=== PATIENT | female | born 1990 | race Caucasian/White ===

== ENCOUNTER 2017-03-20 11:58 | Emergency (ER) | payer MEDICAID | END 2017-03-20 12:10 | disposition left against medical advice (07) | LOC: ER 11:58 | DX: Z53.21 Procedure and treatment not carried out due to patient leaving prior to being seen by health care provider (principal) ==

== ENCOUNTER 2017-03-25 12:17 | Emergency (ER) | payer MEDICAID ==
[2017-03-25 12:32] VITALS: BP 128/95
--- NOTE | 2017-03-25 13:06 | ER Document Report ---
ED Skin Rash/Insect Bite/Abscs - General Chief Complaint: Abscess Stated Complaint: POSSIBLE ABCESS Time Seen by Provider: 03/25/17 12:56 Mode of Arrival: Ambulatory Information source: Patient TRAVEL OUTSIDE OF THE [place] IN LAST 30 DAYS: No - HPI Patient complains to provider of: Tender/swollen area Onset: Other - 2 months Onset/Duration: Persistent Quality of pain: Achy Severity: Mild Pain Level: 1 Notes: Patient is a 26-year-old female presenting to the emergency room today complaining of painful raised lump in her right groin area that has been present for 2 months, she does shave the area, reports she tried squeeze the area to see if anything would come out nothing has, it has persisted for the past 2 months without any significant change except she does report is gotten slightly larger, no fevers, no injury, no nausea vomiting or diarrhea, no dysuria patient denies being - Related Data Allergies/Adverse Reactions: latex [Latex] Allergy (Verified 03/25/17 12:25) Past Medical History - General Information source: Patient - Social History Smoking Status: Current Every Day Smoker Family History: Reviewed & Not Pertinent, CVA, DM, Hypertension, Malignancy - Past Medical History Cardiac Medical History: Pulmonary Medical History: Neurological Medical History: Reports: Hx Migraine Endocrine Medical History: Renal/ Medical History: Reports: Hx Pelvic Inflammatory Disease. Denies: Hx Peritoneal Dialysis GI Medical History: Musculoskeltal Medical History: Psychiatric Medical History: Reports: Hx Depression - Self diagnosed Past Surgical History: Reports: Hx Dilation and Curettage, Hx Gynecologic Surgery - D&C 01/03/2014, Hx Oral Surgery - Immunizations Immunizations up to date: Yes Hx Diphtheria, Pertussis, Tetanus Vaccination: Yes Review of Systems - Review of Systems Constitutional: No symptoms reported EENT: No symptoms reported Cardiovascular: No symptoms reported Respiratory: No symptoms reported Gastrointestinal: No symptoms reported Genitourinary: No symptoms reported Female Genitourinary: No symptoms reported Musculoskeletal: No symptoms reported Skin: See HPI Hematologic/Lymphatic: No symptoms reported Neurological/Psychological: No symptoms reported -: Yes All other systems reviewed and negative Physical Exam - Vital signs Vitals: Temp Pulse Resp BP Pulse Ox 99.2 F 90 16 128/95 H 98 03/25/17 12:25 03/25/17 12:25 03/25/17 12:25 03/25/17 12:25 03/25/17 12:25 - Notes Notes: - General General appearance: Appears well, Alert In distress: None - HEENT Head: Normocephalic, Atraumatic Eyes: Normal Conjunctiva: Normal Extraocular movements intact: Yes Eyelashes: Normal Pupils: PERRL - Respiratory Respiratory status: No respiratory distress - Cardiovascular Rhythm: Regular - Abdominal Inspection: Normal - Back Back: Normal - Extremities General upper extremity: Normal inspection General lower extremity: Normal inspection - Neurological Neuro grossly intact: Yes Orientation: AAOx4 James Coma Scale Eye Opening: Spontaneous James Coma Scale Verbal: Oriented James Coma Scale Motor: Obeys Commands Encinal Coma Scale Total: 15 - Psychological Associated symptoms: Normal affect, Normal mood - Skin Skin Temperature: Warm Skin Moisture: Dry Skin Color: Normal - Skin Skin irregularity: other - In the right groin area or 2 separate areas of mild induration with mild erythema, slightly tender to palpate, no active drainage, no fluctuance Course - Re-evaluation Re-evalutation: 03/25/17 15:16 Physical exam findings consistent with folliculitis in the right groin area, no fluctuance, and no need for incision and drainage at this point, patient was advised to apply warm compresses, was started on antibiotics and advised to return if symptoms worsen, patient acknowledges understanding and agreement with this plan - Vital Signs Vital signs: Temp Pulse Resp BP Pulse Ox 99.2 F 90 18 128/95 H 98 03/25/17 12:25 03/25/17 12:25 03/25/17 13:12 03/25/17 12:25 03/25/17 12:25 Discharge - Discharge Clinical Impression: Folliculitis Condition: Stable Disposition: HOME, SELF-CARE Instructions: Folliculitis ([facility]), Trimethoprim-Sulfa ([facility]) Additional Instructions: Follow up with your primary care provider in one to 2 days. Return to the emergency room immediately if symptoms worsen or any additional concerns. Prescriptions: Sulfamethoxazole/Trimethoprim [Bactrim Ds Tablet] 1 each PO BID #20 tablet
== END 2017-03-25 13:15 | disposition home or self-care (01) ==
LOC: ER 12:17
DX: L73.9 Follicular disorder, unspecified (principal); Z91.040 Latex allergy status
CPT/HCPCS: 99282

== ENCOUNTER 2018-07-11 18:17 | Emergency (ER) | payer SELFPAY ==
[2018-07-11 18:27] VITALS: BP 143/97
--- NOTE | 2018-07-11 18:39 | ER Document Report ---
HPI - HPI Time Seen by Provider: 07/11/18 18:36 Pain Level: 2 Notes: Patient is a 28-year-old female who presents emergency department for staple removal status post placement 10 days ago in [place] for a laceration to her left forearm. Patient states that she has kept the wound clean and has not noticed any redness or purulence. No other concerns or complaints. Denies any fever, URI, sore throat, chest pain, palpitations, syncope, cough, shortness of breath, wheeze, dyspnea, abdominal pain, nausea/vomiting/diarrhea, urinary retention, dysuria, hematuria, numbness/tingling, muscle paralysis/weakness, or rash. - ROS Systems Reviewed and Negative: Yes All other systems reviewed and negative - REPRODUCTIVE Reproductive: DENIES: : Past Medical History - Social History Smoking Status: Unknown if Ever Smoked Family History: Reviewed & Not Pertinent, CVA, DM, Hypertension, Malignancy - Past Medical History Cardiac Medical History: Pulmonary Medical History: Neurological Medical History: Reports: Hx Migraine Endocrine Medical History: Renal/ Medical History: Reports: Hx Pelvic Inflammatory Disease. Denies: Hx Peritoneal Dialysis GI Medical History: Musculoskeletal Medical History: Psychiatric Medical History: Reports: Hx Depression - Self diagnosed Past Surgical History: Reports: Hx Section, Hx Dilation and Curettage, Hx Gynecologic Surgery - D&C 01/03/2014, Hx Oral Surgery - Immunizations Immunizations up to date: Yes Hx Diphtheria, Pertussis, Tetanus Vaccination: Yes Vertical Provider Document - CONSTITUTIONAL Agree With Documented VS: Yes Notes: PHYSICAL EXAMINATION: GENERAL: Well-appearing, well-nourished and in no acute distress. LUNGS: Breath sounds clear to auscultation bilaterally and equal. No wheezes rales or rhonchi. HEART: Regular rate and rhythm without murmurs, rubs, gallops. Musculoskeletal: Left arm: FROM to passive/active. Strength 5+/5. N/V intact distal. Extremities: No cyanosis, clubbing, or edema b/l. Peripheral pulses 2+. Capillary refill less than 3 seconds. NEUROLOGICAL: Cranial nerves grossly intact. Normal speech, normal gait. Normal sensory, motor exams PSYCH: Normal mood, normal affect. SKIN: Left forearm: [address] and the wound appears well-healed without wound dehiscence, erythema, warmth, purulence, streaks, or fluctuance. Nontender to palpation. - INFECTION CONTROL TRAVEL OUTSIDE OF THE [place] IN LAST 30 DAYS: No Course - Re-evaluation Re-evalutation: 07/11/18 18:39 Patient is an afebrile, well-hydrated, 28-year-old female who presents emergency department for staple removal. Vitals are acceptable. PE is otherwise unremarkable. There is no evidence of wound dehiscence or infection at this time. The wound appears well-healed and ziyad were removed successfully without any complications. Wound instructions reviewed. Recheck with your PCM in 3-5 days. Return to the ED with any other worsening/concerning symptoms as reviewed. Patient is in agreement. - Vital Signs Vital signs: Temp Pulse Resp BP Pulse Ox 97.9 F 70 14 143/97 H 96 07/11/18 18:26 07/11/18 18:26 07/11/18 18:26 07/11/18 18:26 07/11/18 18:26 Discharge - Discharge Clinical Impression: Removal of ziyad Condition: Stable Disposition: HOME, SELF-CARE Instructions: Staple Removal ([facility]) Additional Instructions: Keep the skin clean Wash with soap and water Tylenol/ibuprofen if needed Take medication as directed Monitor for any worsening symptoms Recheck with your PCM in 3-5 days Return to the ED with any worsening symptoms and/or development of fever, headache, chest pain, palpitations, syncope, shortness of breath, trouble breathing, abdominal pain, n/v/d, abscess, purulent discharge, red streaks, worsening swelling, or other worsening symptoms that are concerning to you. Forms: Elevated Blood Pressure Referrals: [facility] [Provider Group] - Follow up as needed
== END 2018-07-11 19:00 | disposition home or self-care (01) ==
LOC: ER 18:17
DX: S51.812D Laceration without foreign body of left forearm, subsequent encounter (principal); W45.8XXD Other foreign body or object entering through skin, subsequent encounter
CPT/HCPCS: 99281

== ENCOUNTER 2018-12-14 14:10 | Emergency (ER) | payer SELFPAY ==
--- NOTE | 2018-12-14 14:42 | ER Document Report ---
ED Medical Screen (RME) - General Chief Complaint: Diarrhea Stated Complaint: WEAKNESS Time Seen by Provider: 12/14/18 14:37 Mode of Arrival: Ambulatory Information source: Patient Notes: Patient presents emergency department with reports of diarrhea multiple times a day for over a month. Patient reports she started to feel weak. She reports whenever she eats goes right through her. Denies recent trip. Denies recent antibiotics. Reports 2 medications new but reports the diarrhea was happening before she started the new medications. She reports her mother gave her some type of antidiarrhea medication yesterday. Otherwise she has not taken anything. She denies fever vomiting. Patient complains abdominal cramps. I have greeted and performed a rapid initial assessment of this patient. A comprehensive ED assessment and evaluation of the patient, analysis of test results and completion of the medical decision making process will be conducted by additional ED providers. Dictation of this chart was performed using voice recognition software; therefore, there may be some unintended grammatical errors. TRAVEL OUTSIDE OF THE [place] IN LAST 30 DAYS: No - Related Data Allergies/Adverse Reactions: latex [Latex] Allergy (Verified 12/14/18 14:11) Past Medical History - Social History Chew tobacco use (# tins/day): No Frequency of alcohol use: Social Drug Abuse: Marijuana Family history: Reviewed & Not Pertinent - Past Medical History Cardiac Medical History: Pulmonary Medical History: Neurological Medical History: Reports: Hx Migraine Endocrine Medical History: Renal/ Medical History: Reports: Hx Pelvic Inflammatory Disease. Denies: Hx Peritoneal Dialysis GI Medical History: Musculoskeltal Medical History: Psychiatric Medical History: Reports: Hx Depression - Self diagnosed Past Surgical History: Reports: Hx Section, Hx Dilation and Curettage, Hx Gynecologic Surgery - D&C 01/03/2014, Hx Oral Surgery - Immunizations Immunizations up to date: Yes Hx Diphtheria, Pertussis, Tetanus Vaccination: Yes Physical Exam - Vital signs Vitals: Temp Pulse Resp BP Pulse Ox 98.2 F 73 18 142/87 H 100 12/14/18 14:21 12/14/18 14:21 12/14/18 14:21 12/14/18 14:21 12/14/18 14:21 Course - Vital Signs Vital signs: Temp Pulse Resp BP Pulse Ox 98.2 F 73 18 142/87 H 100 12/14/18 14:21 12/14/18 14:21 12/14/18 14:21 12/14/18 14:21 12/14/18 14:21
[2018-12-14 15:05] LABS: ABSOLUTE EOSINOPHILS # (AUTO) 0.1 10^3/uL (0.0-0.6); ABSOLUTE LYMPHOCYTES (AUTO) 1.2 10^3/uL (0.5-4.7); ABSOLUTE MONOCYTES (AUTO) 0.7 10^3/uL (0.1-1.4); ABSOLUTE NEUT (AUTO) 5.3 10^3/uL (1.7-8.2); BASOPHILS % (AUTO) 0.5 % (0-2); EOSINOPHILS % (AUTO) 1.1 % (0-6); HEMATOCRIT 41.7 % (36.0-47.0); LYMPHOCYTES % (AUTO) 16.1 % (13-45); MEAN CORPUSCULAR HGB CONC 33.5 g/dL (32.0-36.0); MEAN CORPUSCULAR VOLUME 93 fl (80-97); MONOCYTES % (AUTO) 9.6 % (3-13); PLATELET COUNT 185 10^3/uL (150-450); RED BLOOD COUNT 4.51 10^6/uL (3.72-5.28); RED CELL DISTRIBUTION WIDTH 13.5 % (11.5-14.0); SEGMENTED NEUTROPHILS % (AUTO) 72.7 % (42-78); TOTAL CELLS COUNTED % (AUTO) 100 %; WHITE BLOOD COUNT 7.3 10^3/uL (4.0-10.5)
[2018-12-14 15:22] LABS: ALANINE AMINOTRANSFERASE 19 U/L (9-52); ALBUMIN 4.4 g/dL (3.5-5.0); ALKALINE PHOSPHATASE 68 U/L (38-126); ANION GAP 8 (5-19); APPEARANCE,URINE CLEAR; ASPARTATE AMINO TRANSFERASE 22 U/L (14-36); BILIRUBIN,DIRECT 0.1 mg/dL (0.0-0.4); BILIRUBIN,TOTAL 0.3 mg/dL (0.2-1.3); BILIRUBIN,URINE NEGATIVE (NEGATIVE); BLOOD UREA NITROGEN 4 mg/dL (7-20); CALCIUM 9.6 mg/dL (8.4-10.2); CARBON DIOXIDE 29 mmol/L (22-30); CHLORIDE 103 mmol/L (98-107); COLOR,URINE STRAW; GLUCOSE 90 mg/dL (75-110); GLUCOSE, URINE NEGATIVE (NEGATIVE); KETONES,URINE NEGATIVE (NEGATIVE); POTASSIUM 4.1 mmol/L (3.6-5.0); SODIUM 139.6 mmol/L (137-145); TOTAL PROTEIN 7.5 g/dL (6.3-8.2); URINE SPECIFIC GRAVITY 1.008
[2018-12-14 15:23] LABS: LEUKOCYTE ESTERASE,URINE NEGATIVE (NEGATIVE); NITRITE,URINE NEGATIVE (NEGATIVE); PROTEIN,URINE NEGATIVE (NEGATIVE); UROBILINOGEN,URINE NEGATIVE mg/dL (<2.0)
--- NOTE | 2018-12-14 15:57 | ER Document Report ---
ED General - General Chief Complaint: Diarrhea Stated Complaint: WEAKNESS Time Seen by Provider: 12/14/18 14:37 Primary Care Provider: [facility] [Provider Group] - Follow up as needed [facility] [Provider Group] - Follow up as needed Mode of Arrival: Ambulatory Notes: Patient is a 28-year-old female who presents emergency department with a chief complaint of diarrhea weakness. Patient states that she has had diarrhea for the past month. Started yesterday she felt like she was nauseous and not feeling well, therefore prompted her to him to the emergency department. She also has complaints of numbness in her arms and hands. Patient states that she does not have any actual pain, but feels "gassy.". Patient states that her mother has been diagnosed with a gluten allergy. Patient states that she eats whenever she wants and has not tried eliminating gluten or any other substance from her diet. TRAVEL OUTSIDE OF THE [place] IN LAST 30 DAYS: No - Related Data Allergies/Adverse Reactions: latex [Latex] Allergy (Verified 12/14/18 14:11) Past Medical History - General Information source: Patient - Social History Smoking Status: Current Every Day Smoker Chew tobacco use (# tins/day): No Frequency of alcohol use: Social Drug Abuse: Marijuana Family History: Reviewed & Not Pertinent, CVA, DM, Hypertension, Malignancy Patient has suicidal ideation: No Patient has homicidal ideation: No - Past Medical History Cardiac Medical History: Pulmonary Medical History: Neurological Medical History: Reports: Hx Migraine Endocrine Medical History: Renal/ Medical History: Reports: Hx Pelvic Inflammatory Disease. Denies: Hx Peritoneal Dialysis GI Medical History: Musculoskeletal Medical History: Psychiatric Medical History: Reports: Hx Depression - Self diagnosed Past Surgical History: Reports: Hx Section, Hx Dilation and Curettage, Hx Gynecologic Surgery - D&C 01/03/2014, Hx Oral Surgery - Immunizations Immunizations up to date: Yes Hx Diphtheria, Pertussis, Tetanus Vaccination: Yes Review of Systems - Review of Systems Notes: REVIEW OF SYSTEMS: CONSTITUTIONAL : Denies recent illness. Denies recent unintentional weight loss. Denies fever, chills, or sweats. EENT: Denies eye, ear, throat, or mouth pain, discharge, or symptoms. Denies nasal or sinus congestion. CARDIOVASCULAR: Denies chest pain. RESPIRATORY: Denies shortness of breath, cough, congestion, difficulty breathing, or wheezing. GASTROINTESTINAL: See HPI GENITOURINARY: Denies difficulty urinating, burning, blood in urine, urgency or frequency. MUSCULOSKELETAL: Denies neck and back pain. Denies joint pain or swelling. SKIN: Denies rash, itchiness, or lesions HEMATOLOGIC : Denies easy bruising or bleeding. LYMPHATIC: Denies swollen, painful, enlarged glands. NEUROLOGICAL: Denies no numbness or tingling denies weakness. Denies headache. Denies altered mental status. Denies alteration in speech. PSYCHIATRIC: Denies stress, anxiety, alteration in sleep patterns, or depressi on. All other systems reviewed and negative. Physical Exam - Vital signs Vitals: Temp Pulse Resp BP Pulse Ox 98.2 F 73 18 142/87 H 100 12/14/18 14:21 12/14/18 14:21 12/14/18 14:21 12/14/18 14:21 12/14/18 14:21 - Notes Notes: PHYSICAL EXAMINATION: GENERAL: Appears well, healthy, well-nourished, no acute distress. HEAD: Normocephalic, atraumatic. EYES: PERRL, conjunctiva normal, all extraocular movements intact, sclera nonicteric ENT: Moist mucous membranes. NECK: Supple, no noticeable swelling, redness, rash. Normal range of motion. LUNGS: Equal breath sounds bilaterally and clear to auscultation. No wheezes rales or rhonchi. CARDIOVASCULAR: S1-S2, regular rate, regular rhythm. Radial pulses 2+, normal. ABDOMEN: Normoactive bowel sounds. Soft, nontender, no guarding, no rebound tenderness, and no masses palpated. EXTREMITIES: Normal strength and range of motion, no pitting or edema. No cyanosis. NEUROLOGICAL: Moves all extremities upon command. Strength 5/5 in all extremities. PSYCH: Normal mood, normal affect. SKIN: Warm, dry. No rash, lesions, ulcerations noted. Normal skin turgor. Course - Re-evaluation Re-evalutation: 12/14/18 17:13 Patient is not able to have bowel movement at this time. I will send her home with a lab slip so she can turn her stool and and have someone follow-up with her stool results. I have educated the patient on trying to eliminate gluten from her diet. She will follow-up with the [facility] or [facility] in regards to this visit. I am very low suspicion for appendicitis, bowel obstruction, colitis, diverticulitis, diverticulosis, bowel perforation, or any life-threatening etiology at this time. Follow-up precautions were given. Verbal discharge instructions were given to the patient. They verbalized understanding. They are stable for discharge. - Vital Signs Vital signs: Temp Pulse Resp BP Pulse Ox 98.4 F 73 16 129/85 H 99 12/14/18 17:12 12/14/18 17:12 12/14/18 17:12 12/14/18 17:12 12/14/18 17:12 - Laboratory Result Diagrams: 12/14/18 14:50 12/14/18 14:50 Laboratory results interpreted by me: 12/14/18 14:50 BUN 4 L Discharge - Discharge Clinical Impression: Weakness, Nausea Diarrhea Qualifiers: Diarrhea type: unspecified type Qualified Code(s): R19.7 - Diarrhea, unspecified Condition: Stable Disposition: HOME, SELF-CARE Additional Instructions: You were seen today in the emergency department for diarrhea, nausea, and weakness. Your nausea and weakness/numbness is most likely due to you having constant diarrhea. He received a dose of loperamide (Imodium) here in the emergency department to help with your diarrhea. Please make sure you stay well-hydrated. Your labs here in the emergency department were normal. Please follow-up with 1 of the clinics below in regards to this visit. If you suspect he may have gluten allergies or intolerance, please start eliminating these items from your diet. You are being sent home with Zofran, medication for nausea. He can take 1 tablet every 4-6 hours as needed. You are being sent home with a lab slip to turn your stool in. Please bring th is to the lab. You do not have the check into the emergency department. Somebody will call you if your stool labs are abnormal. Foods that are good to help with diarrhea are bananas and applesauce. Forms: Follow-Up Laboratory Testing Referrals: [facility] [Provider Group] - Follow up as needed [facility] [Provider Group] - Follow up as needed
[2018-12-14] MEDS ORDERED: LOPERAMIDE HCL 2 MG CAPSULE PO ONE (17:08)
[2018-12-14] MEDS ORDERED: ONDANSETRON ODT 4 MG TAB (6 TAB/ER DISP) PO PRN (17:09)
--- NOTE | 2018-12-14 17:12 | ER Document Report ---
ED General - General Chief Complaint: Diarrhea Stated Complaint: WEAKNESS Time Seen by Provider: 12/14/18 14:37 Mode of Arrival: Ambulatory Notes: Patient is a 28-year-old female who presents to the emergency department with a chief complaint of diarrhea.. She states that she has had diarrhea for the past month and yesterday she felt nauseous and she felt weak and that her arms and hands were going numb. She states that she continues to have diarrhea. She denies any fever, body aches, vomiting, or any other symptoms. Patient states that she also feels gassy. She reports that her mother has a gluten allergy and had the same symptoms. Patient has not tried to eliminate gluten from her diet. Patient does take Ambien and Viibryd. TRAVEL OUTSIDE OF THE [place] IN LAST 30 DAYS: No - Related Data Allergies/Adverse Reactions: latex [Latex] Allergy (Verified 12/14/18 14:11) Past Medical History - General Information source: Patient - Social History Smoking Status: Current Every Day Smoker Chew tobacco use (# tins/day): No Frequency of alcohol use: Social Drug Abuse: Marijuana Family History: Reviewed & Not Pertinent, CVA, DM, Hypertension, Malignancy Patient has suicidal ideation: No Patient has homicidal ideation: No - Past Medical History Cardiac Medical History: Pulmonary Medical History: Neurological Medical History: Reports: Hx Migraine Endocrine Medical History: Renal/ Medical History: Reports: Hx Pelvic Inflammatory Disease. Denies: Hx Peritoneal Dialysis GI Medical History: Musculoskeletal Medical History: Psychiatric Medical History: Reports: Hx Depression - Self diagnosed Past Surgical History: Reports: Hx Section, Hx Dilation and Curettage, Hx Gynecologic Surgery - D&C 01/03/2014, Hx Oral Surgery - Immunizations Immunizations up to date: Yes Hx Diphtheria, Pertussis, Tetanus Vaccination: Yes Physical Exam - Vital signs Vitals: Temp Pulse Resp BP Pulse Ox 98.2 F 73 18 142/87 H 100 12/14/18 14:21 12/14/18 14:21 12/14/18 14:12/14/18 14:12/14/18 14:21 Course - Vital Signs Vital signs: Temp Pulse Resp BP Pulse Ox 98.2 F 73 18 142/87 H 100 12/14/18 14:21 12/14/18 14:21 12/14/18 14:21 12/14/18 14:21 12/14/18 14:21 - Laboratory Result Diagrams: 12/14/18 14:50 12/14/18 14:50 Laboratory results interpreted by me: 12/14/18 14:50 BUN 4 L
[2018-12-14 17:14] VITALS: BP 129/85
== END 2018-12-14 18:28 | disposition home or self-care (01) ==
LOC: ER 14:10
DX: R19.7 Diarrhea, unspecified (principal); R53.1 Weakness; R11.0 Nausea; F17.200 Nicotine dependence, unspecified, uncomplicated; Z91.040 Latex allergy status
CPT/HCPCS: 36415; 80053; 81001; 84703; 85025; 99284

== ENCOUNTER 2018-12-28 14:44 | Emergency (ER) | payer SELFPAY ==
[2018-12-28 14:51] VITALS: BP 150/91
--- NOTE | 2018-12-28 14:58 | ER Document Report ---
HPI - HPI Time Seen by Provider: 12/28/18 14:53 Pain Level: 3 Notes: Patient is a 28-year-old female no significant past medical history aside from scoliosis and degenerative disc disease of her back who presents complaining of left knee pain for the past several days without precipitating event or injury. Patient states that on occasion it feels like when he wants to give out on her. Patient states that the pain from the knee will occasionally radiate up to late ral thigh, but does not have pain that originates in her hip or back at this time. She has no other concerns or complaints. She has not noticed any redness or swelling. Denies any headache, fever, neck pain, URI, sore throat, chest pain, palpitations, syncope, cough, shortness of breath, wheeze, dyspnea, abdominal pain, nausea/vomiting/diarrhea, urinary retention, dysuria, hematuria, loss of control of bowel or bladder, numbness/tingling, saddle anesthesia, muscle paralysis/weakness, or rash. - ROS Systems Reviewed and Negative: Yes All other systems reviewed and negative - REPRODUCTIVE Reproductive: DENIES: : Past Medical History - Social History Smoking Status: Current Some Day Smoker Family History: Reviewed & Not Pertinent, CVA, DM, Hypertension, Malignancy - Past Medical History Cardiac Medical History: Pulmonary Medical History: Neurological Medical History: Reports: Hx Migraine Endocrine Medical History: Renal/ Medical History: Reports: Hx Pelvic Inflammatory Disease. Denies: Hx Peritoneal Dialysis GI Medical History: Musculoskeletal Medical History: Psychiatric Medical History: Reports: Hx Depression - Self diagnosed Past Surgical History: Reports: Hx Section, Hx Dilation and Curettage, Hx Gynecologic Surgery - D&C 01/03/2014, Hx Oral Surgery - Immunizations Immunizations up to date: Yes Hx Diphtheria, Pertussis, Tetanus Vaccination: Yes Vertical Provider Document - CONSTITUTIONAL Agree With Documented VS: Yes Notes: PHYSICAL EXAMINATION: GENERAL: Well-appearing, well-nourished and in no acute distress. LUNGS: Breath sounds clear to auscultation bilaterally and equal. No wheezes rales or rhonchi. HEART: Regular rate and rhythm without murmurs, rubs, gallops. Musculoskeletal: Lt knee: No obvious swelling, ecchymosis, effusion, or deformity. FROM to passive/active and flexion >90 w/o difficulty. Strength 5+/5. N/V intact distal. + mild joint line tenderness. Ligamentous grossly stable, limited exam with larger leg size. Abdifatah grossly negative. Patellar grind negative. No calf tenderness. Extremities: No cyanosis, clubbing, or edema b/l. Peripheral pulses 2+. Capillary refill less than 3 seconds. Amos neg b/l. NEUROLOGICAL: Normal speech, normal gait. Normal sensory, motor exams PSYCH: Normal mood, normal affect. SKIN: Warm, Dry, normal turgor, no rashes or lesions noted. - INFECTION CONTROL TRAVEL OUTSIDE OF THE [place] IN LAST 30 DAYS: No Course - Re-evaluation Re-evalutation: 12/28/18 15:01 Patient is an afebrile, well-hydrated, 28-year-old female who presents to the ED with left knee pain. Vitals are acceptable without any significant tachycardia, tachypnea, or hypoxia. PE is otherwise unremarkable for any neurovascular compromise, obvious tendon/ligament rupture, obvious fracture/dislocation, septic joint. Otherwise knee rules negative. Patient is nontoxic-appearing. Patient is able to ambulate and weight-bear. No other labs or imaging warranted at this time based on H&P. Rx for mobic. Conservative measures otherwise for symptoms. Recheck with your PCM in 3-5 days. Consider consult orthopedics. Return to the ED with any worsening/concerning symptoms otherwise as reviewed in discharge. Patient is in agreement. Work note provided. - Vital Signs Vital signs: Temp Pulse Resp BP Pulse Ox 97.8 F 77 18 150/91 H 98 12/28/18 14:50 12/28/18 14:50 12/28/18 14:50 12/28/18 14:50 12/28/18 14:50 Discharge - Discharge Clinical Impression: Left knee pain Qualifiers: Chronicity: acute Qualified Code(s): M25.562 - Pain in left knee Condition: Stable Disposition: HOME, SELF-CARE Additional Instructions: Rest, Ice, Compression, Elevation Tylenol/ibuprofen as needed Light stretches daily Strength exercises as able Moist heat and massage may help F/u with your PCP in 3-5 days for a recheck Consider consult(s) with Orthopedics/physical therapy for ongoing/worsening symptoms Return to the ED with any worsening symptoms and/or development of fever, headache, chest pain, palpitations, syncope, shortness of breath, trouble breathing, abdominal pain, n/v/d, muscle weakness/paralysis, numbness/tingling, swelling, redness, or other worsening symptoms that are concerning to you. Prescriptions: Meloxicam [Mobic 7.5 Mg Tablet] 7.5 mg PO BID PRN #10 tablet PRN Reason: Forms: Return to Work, Elevated Blood Pressure, Smoking Cessation Education Referrals: ADELITA PRAKASH MD [ACTIVE PROVISIONAL STAFF] - Follow up as needed
== END 2018-12-28 15:05 | disposition home or self-care (01) ==
LOC: ER 14:44
DX: M25.562 Pain in left knee (principal); F17.200 Nicotine dependence, unspecified, uncomplicated
CPT/HCPCS: 99283

== ENCOUNTER 2019-04-10 16:22 | Emergency (ER) | payer SELFPAY ==
--- NOTE | 2019-04-10 16:47 | ER Document Report ---
ED Medical Screen (RME) - General Chief Complaint: Abdominal Pain Stated Complaint: ABDOMINAL PAIN, VOMITING Time Seen by Provider: 04/10/19 16:43 Mode of Arrival: Ambulatory Information source: Patient Notes: 28-year-old female presents to ED for complaint of generalized abdominal pain and vomiting x5 today. She states she did have diarrhea 4- 5 days ago. She does have a history of anxiety and depression has had a D&C wisdom tooth removed and cerclage. Last menstrual period was February 12 but she has had negative test since then. She states she smokes a third a pack a day drinks monthly and smokes some pot. Patient is alert oriented respirations regular and unlabored speaking in full sentences walks with even steady gait. I have greeted and performed a rapid initial assessment of this patient. A comprehensive ED assessment and evaluation of the patient, analysis of test results and completion of medical decision making process will be conducted by an additional ED providers. TRAVEL OUTSIDE OF THE [place] IN LAST 30 DAYS: No - Related Data Allergies/Adverse Reactions: latex [Latex] Allergy (Verified 04/10/19 16:41) Past Medical History - Social History Family history: Reviewed & Not Pertinent - Past Medical History Cardiac Medical History: Pulmonary Medical History: Neurological Medical History: Reports: Hx Migraine Endocrine Medical History: Renal/ Medical History: Reports: Hx Pelvic Inflammatory Disease. Denies: Hx Peritoneal Dialysis GI Medical History: Musculoskeltal Medical History: Psychiatric Medical History: Reports: Hx Depression - Self diagnosed Past Surgical History: Reports: Hx Section, Hx Dilation and Curettage, Hx Gynecologic Surgery - D&C 01/03/2014, Hx Oral Surgery - Immunizations Immunizations up to date: Yes Hx Diphtheria, Pertussis, Tetanus Vaccination: Yes
[2019-04-10 18:11] LABS: ABSOLUTE LYMPHOCYTES (AUTO) 1.4 10^3/uL (0.5-4.7); ABSOLUTE MONOCYTES (AUTO) 0.8 10^3/uL (0.1-1.4); BASOPHILS % (AUTO) 0.5 % (0-2); EOSINOPHILS % (AUTO) 0.5 % (0-6); HEMATOCRIT 44.5 % (36.0-47.0); HEMOGLOBIN 15.1 g/dL (12.0-15.5); MEAN CORPUSCULAR VOLUME 94 fl (80-97); PLATELET COUNT 182 10^3/uL (150-450); RED BLOOD COUNT 4.73 10^6/uL (3.72-5.28); RED CELL DISTRIBUTION WIDTH 14.2 % (11.5-14.0); TOTAL CELLS COUNTED % (AUTO) 100 %; WHITE BLOOD COUNT 9.3 10^3/uL (4.0-10.5)
[2019-04-10 18:31] LABS: APPEARANCE,URINE SLIGHTLY-CLOUDY; BILIRUBIN,URINE NEGATIVE (NEGATIVE); COLOR,URINE STRAW; GLUCOSE, URINE NEGATIVE (NEGATIVE); KETONES,URINE NEGATIVE (NEGATIVE); PROTEIN,URINE NEGATIVE (NEGATIVE); URINE SPECIFIC GRAVITY 1.008; UROBILINOGEN,URINE NEGATIVE mg/dL (<2.0)
[2019-04-10 18:33] LABS: ALBUMIN 4.7 g/dL (3.5-5.0); ALKALINE PHOSPHATASE 70 U/L (38-126); ANION GAP 9 (5-19); ASPARTATE AMINO TRANSFERASE 23 U/L (14-36); BILIRUBIN,DIRECT 0.1 mg/dL (0.0-0.4); BILIRUBIN,TOTAL 0.2 mg/dL (0.2-1.3); BLOOD UREA NITROGEN 8 mg/dL (7-20); CALCIUM 9.7 mg/dL (8.4-10.2); CARBON DIOXIDE 27 mmol/L (22-30); CHLORIDE 104 mmol/L (98-107); GLUCOSE 95 mg/dL (75-110); POTASSIUM 4.1 mmol/L (3.6-5.0)
[2019-04-11 00:02] VITALS: BP 123/71
[2019-04-11] MEDS ORDERED: ONDANSETRON ODT 4 MG TAB (6 TAB/ER DISP) PO PRN (00:08)
--- NOTE | 2019-04-11 00:08 | ER Document Report ---
HPI - HPI Time Seen by Provider: 04/10/19 16:43 Pain Level: 3 Notes: Patient is an otherwise healthy 20-year-old female presenting to the emergency department with complaints of generalized abdominal pain. Patient reports about 4 to 5 days ago she did have several episodes of diarrhea however that has now resolved. Patient reports she woke up this morning and had one episode of vomiting. She states she is concerned she may be . Patient currently asymptomatic, denies any nausea, vomiting, diarrhea or fevers. - CONSTITUTIONAL Constitutional: DENIES: Fever, Chills - EENT EENT: DENIES: Sore Throat, Ear Pain, Eye problems - NEURO Neurology: DENIES: Headache, Weakness, Vision blurred, Dizzinesss / Vertigo - CARDIOVASCULAR Cardiovascular: DENIES: Chest pain - RESPIRATORY Respiratory: DENIES: Trouble Breathing, Coughing - GASTROINTESTINAL Gastrointestinal: REPORTS: Abdominal Pain - 2to3/5 - URINARY Urinary: DENIES: Dysuria, Urgency, Frequency - REPRODUCTIVE LMP: 02/12/19 Reproductive: DENIES: : - MUSCULOSKELETAL Musculoskeletal: DENIES: Extremity pain Past Medical History - General Information source: Patient - Social History Smoking Status: Current Every Day Smoker Chew tobacco use (# tins/day): No Frequency of alcohol use: Occasional Drug Abuse: Marijuana Family History: Reviewed & Not Pertinent, CVA, DM, Hypertension, Malignancy Patient has suicidal ideation: No Patient has homicidal ideation: No - Past Medical History Cardiac Medical History: Pulmonary Medical History: Neurological Medical History: Reports: Hx Migraine Endocrine Medical History: Renal/ Medical History: Reports: Hx Pelvic Inflammatory Disease. Denies: Hx Peritoneal Dialysis GI Medical History: Musculoskeletal Medical History: Psychiatric Medical History: Reports: Hx Depression - Self diagnosed Past Surgical History: Reports: Hx Section, Hx Dilation and Curettage, Hx Gynecologic Surgery - D&C 01/03/2014, Hx Oral Surgery - Immunizations Immunizations up to date: Yes Hx Diphtheria, Pertussis, Tetanus Vaccination: Yes Vertical Provider Document - CONSTITUTIONAL Notes: PHYSICAL EXAMINATION: GENERAL: Well-appearing, well-nourished and in no acute distress. HEAD: Atraumatic, normocephalic. EYES: Pupils equal round and reactive to light, extraocular movements intact, conjunctiva are normal. ENT: Nares patent, oropharynx clear without exudates. Moist mucous membranes. NECK: Normal range of motion, supple without lymphadenopathy LUNGS: Breath sounds clear to auscultation bilaterally and equal. No wheezes rales or rhonchi. HEART: Regular rate and rhythm without murmurs ABDOMEN: Soft, nontender, nondistended abdomen. No guarding, no rebound. No masses appreciated. Female : No CVA tenderness. Musculoskeletal: Normal range of motion, no pitting or edema. No cyanosis. NEUROLOGICAL: Cranial nerves grossly intact. Normal speech, normal gait. Normal sensory, motor exams PSYCH: Normal mood, normal affect. SKIN: Warm, Dry, normal turgor, no rashes or lesions noted. - INFECTION CONTROL TRAVEL OUTSIDE OF THE [place] IN LAST 30 DAYS: No Course - Re-evaluation Re-evalutation: Microbiology 04/10/19 17:53 Urine Culture - Final Clean Catch Midstream Mixed Urogenital [facility] 04/10/19 04/10/19 04/10/19 17:53 17:53 17:53 WBC 9.3 RBC 4.73 Hgb 15.1 Hct 44.5 MCV 94 MCH 32.0 MCHC 34.0 RDW 14.2 H Plt Count 182 Lymph % (Auto) 15.0 [place] % (Auto) 9.0 Eos % (Auto) 0.5 Baso % (Auto) 0.5 Absolute Neuts (auto) 7.0 Absolute Lymphs (auto) 1.4 Absolute Monos (auto) 0.8 Absolute Eos (auto) 0.0 Absolute Basos (auto) 0.0 Seg Neutrophils % 75.0 Sodium 140.2 Potassium 4.1 Chloride 104 Carbon Dioxide 27 Anion Gap 9 BUN 8 Creatinine 0.75 Est GFR ( Amer) > 60 Est GFR (MDRD) Non-Af > 60 Glucose 95 Calcium 9.7 Total Bilirubin 0.2 Direct Bilirubin 0.1 Neonat Total Bilirubin Not Reportable Neonat Direct Bilirubin Not Reportable Neonat Indirect Bili Not Reportable AST 23 ALT 18 Alkaline Phosphatase 70 Total Protein 8.0 Albumin 4.7 Lipase 41.1 Urine Color STRAW Urine Appearance SLIGHTLY-CLOUDY Urine pH 7.0 Ur Specific [place] 1.008 Urine Protein NEGATIVE Urine Glucose (UA) NEGATIVE Urine Ketones NEGATIVE Urine Blood NEGATIVE Urine Nitrite (Reflex) NEGATIVE Urine Bilirubin NEGATIVE Urine Urobilinogen NEGATIVE Leukocyte Esterase Rfl TRACE H Urine RBC (Auto) 0 Urine WBC (Reflex) 2 Squamous Epi Cells Auto 6 Urine Mucus (Auto) RARE Urine Ascorbic Acid NEGATIVE Urine HCG, Qual NEGATIVE Patient has been in the emergency department for several hours at the time of my initial evaluation. Her work-up today has been unremarkable. hCG is negative. Patient reports she feels well and would like a prescription for nausea medications and would like to be discharged home. Abdomen is soft, nontender and vital signs are within normal limits. Patient will be discharged home at this time. ED return precautions were discussed, patient verbalizes understanding and agreement with same. - Vital Signs Vital signs: Temp Pulse Resp BP Pulse Ox 98.5 F 59 L 16 123/71 100 04/11/19 00:01 04/11/19 00:01 04/11/19 00:01 04/11/19 00:01 04/11/19 00:01 - Laboratory Result Diagrams: 04/10/19 17:53 04/10/19 17:53 Laboratory results interpreted by me: 04/10/19 04/10/19 17:53 17:53 RDW 14.2 H Leukocyte Esterase Rfl TRACE H Discharge - Discharge Clinical Impression: Abdominal pain Qualifiers: Abdominal location: unspecified location Qualified Code(s): R10.9 - Unspecified abdominal pain Condition: Stable Disposition: HOME, SELF-CARE Additional Instructions: Abdominal Pain There are many causes of abdominal pain. Pain can mean a serious problem requiring surgery (such as appendicitis). It can also be an innocent problem that goes away on its own (such as a viral infection). Often, time must pass to determine the cause of pain. The physician does not feel that hospitalization is necessary, at present. Things may change within the next 24 hours. Call the doctor or come back for re- examination if any problems occur, such as: (1) Pain that becomes more severe, steady, or becomes concentrated in one specific area. Also, pain that is more severe with movement or coughing. (2) Vomiting that persists or becomes more frequent. (3) Blood in the vomitus, urine, or bowel movements. Blood in the stool may have a tarry or black appearance. (4) Shaking chills or fever greater than 100 degrees F. (5) The abdomen becomes more distended or swollen. (6) Bowel movements cease. (7) Failure to improve as expected. Prescriptions: Promethazine HCl [Phenergan 25 mg Tablet] 1 - 2 tab PO Q6H PRN #15 tablet PRN Reason: Forms: Return to Work
== END 2019-04-11 00:13 | disposition home or self-care (01) ==
LOC: ER 16:22
DX: R10.84 Generalized abdominal pain (principal); R19.7 Diarrhea, unspecified; R11.10 Vomiting, unspecified; F17.200 Nicotine dependence, unspecified, uncomplicated
CPT/HCPCS: 36415; 80053; 81001; 81025; 83690; 85025; 87086; 99284

== ENCOUNTER 2019-06-25 15:47 | Emergency (ER) | payer SELFPAY ==
[2019-06-25] MEDS ORDERED: HYDROCODONE/ACETAMINOPHEN 5-325 MG TABLET PO ONE (16:08)
--- NOTE | 2019-06-25 16:11 | ER Document Report ---
HPI - HPI Patient complains to provider of: Left rib injury Time Seen by Provider: 06/25/19 16:04 Onset: Other - Days ago Onset/Duration: Persistent Quality of pain: Sharp Pain Level: 3 Context: Patient states that her boyfriend was lifting a couch, slipped and fell and whenever he fell his foot struck her in the left posterior rib area. Patient with persistent pain to this area. Patient denies any urinary symptoms. Associated Symptoms: Other - Left posterior rib pain. denies: Nonproductive cough, Productive cough, Fever, Vomiting Exacerbated by: Movement, Deep breathing Relieved by: Denies Similar symptoms previously: No Recently seen / treated by doctor: No - ROS ROS below otherwise negative: Yes Systems Reviewed and Negative: Yes All other systems reviewed and negative - CONSTITUTIONAL Constitutional: DENIES: Fever - CARDIOVASCULAR Cardiovascular: DENIES: Chest pain - RESPIRATORY Respiratory: DENIES: Trouble Breathing, Coughing Notes: Left posterior rib tenderness - GASTROINTESTINAL Gastrointestinal: DENIES: Abdominal Pain, Nausea, Patient vomiting - URINARY Urinary: DENIES: Dysuria - REPRODUCTIVE Reproductive: DENIES: : - MUSCULOSKELETAL Musculoskeletal: REPORTS: Back Pain - DERM Skin Color: Normal Skin Problems: None Past Medical History - General Information source: Patient - Social History Smoking Status: Current Every Day Smoker Frequency of alcohol use: None Drug Abuse: Marijuana Occupation: Retail Lives with: Spouse/Significant other Family History: Reviewed & Not Pertinent, CVA, DM, Hypertension, Malignancy Patient has suicidal ideation: No Patient has homicidal ideation: No - Past Medical History Cardiac Medical History: Pulmonary Medical History: Neurological Medical History: Reports: Hx Migraine Endocrine Medical History: Renal/ Medical History: Reports: Hx Pelvic Inflammatory Disease. Denies: Hx Peritoneal Dialysis GI Medical History: Musculoskeletal Medical History: Psychiatric Medical History: Reports: Hx Depression Past Surgical History: Reports: Hx Section, Hx Dilation and Curettage, Hx Gynecologic Surgery - D&C 01/03/2014, Hx Oral Surgery - Immunizations Immunizations up to date: Yes Hx Diphtheria, Pertussis, Tetanus Vaccination: Yes Vertical Provider Document - CONSTITUTIONAL Agree With Documented VS: Yes Exam Limitations: No Limitations General Appearance: WD/WN, No Apparent Distress - INFECTION CONTROL TRAVEL OUTSIDE OF THE [place] IN LAST 30 DAYS: No - HEENT HEENT: Atraumatic, Normocephalic - NECK Neck: Normal Inspection, Supple - RESPIRATORY Respiratory: Breath Sounds Normal, No Respiratory Distress - CARDIOVASCULAR Cardiovascular: Regular Rate, Regular Rhythm, No Murmur - GI/ABDOMEN Gastrointestinal: Abdomen Soft - BACK Back: Abnormal Inspection - Left lower thoracic rib tenderness, no subcutaneous emphysema, no ecchymosis. No obvious signs of trauma. negative: CVA Tenderness-Right, CVA Tenderness-Left - MUSCULOSKELETAL/EXTREMETIES Musculoskeletal/Extremeties: MAEW, FROM - NEURO Level of Consciousness: Awake, Alert, Appropriate Motor/Sensory: No Motor Deficit - DERM Integumentary: Warm, Dry, No Rash Course - Re-evaluation Re-evalutation: 06/25/19 17:54 No noted rib fractures. Patient's urinalysis without any abnormal findings. Will treat for musculoskeletal pain at this time. Patient otherwise stable in appearance. - Vital Signs Vital signs: Temp Pulse Resp BP Pulse Ox 98.7 F 80 16 145/80 H 100 06/25/19 16:02 06/25/19 16:02 06/25/19 16:02 06/25/19 16:02 06/25/19 16:02 - Laboratory Laboratory results interpreted by me: 06/25/19 17:54 Labs- Entire Visit 06/25/19 17:10 Urine Color STRAW Urine Appearance CLEAR Urine pH 7.0 Ur Specific [place] 1.005 Urine Protein NEGATIVE Urine Glucose (UA) NEGATIVE Urine Ketones NEGATIVE Urine Blood NEGATIVE Urine Nitrite NEGATIVE Urine Bilirubin NEGATIVE Urine Urobilinogen NEGATIVE Ur Leukocyte Esterase NEGATIVE Urine WBC (Auto) 1 Urine RBC (Auto) 0 Squamous Epi Cells Auto 1 Urine Mucus (Auto) RARE Urine Ascorbic Acid NEGATIVE Urine HCG, Qual NEGATIVE - Diagnostic Test Radiology reviewed: Reports reviewed Discharge - Discharge Clinical Impression: Left flank pain Condition: Stable Disposition: HOME, SELF-CARE Instructions: Low Back Pain ([facility]), Muscle Strain ([facility]), Warm Packs ([facility]), Ice Packs ([facility]) Additional Instructions: Return immediately for any new or worsening symptoms Followup with your primary care provider, call tomorrow to make a followup appointment Prescriptions: Lidocaine [Lidoderm 5% (700 mg) Transdermal Patch] 1 patch TP DAILY PRN #10 adh..patch PRN Reason: Naproxen [Naprosyn 250 Nmg Tablet] 1 tab PO BID #14 tablet Methocarbamol [Robaxin 500 Mg Tablet] 500 mg PO QID PRN #20 tablet PRN Reason: Forms: Return to Work Referrals: [facility] [Provider Group] - Follow up as needed [facility] [Provider Group] - Follow up as needed
--- NOTE | 2019-06-25 17:08 | RADIOLOGY REPORT (SQ) ---
EXAM DESCRIPTION: RIBS LEFT W/PA CHEST COMPLETED DATE/TIME: 06/25/2019 4:35 pm REASON FOR STUDY: left post rib pain, strike to rib area COMPARISON: None. TECHNIQUE: Frontal view of the chest and additional views of the left ribs acquired. NUMBER OF VIEWS: Three views LIMITATIONS: None. FINDINGS: FRONTAL CXR: No pneumothorax. No pleural effusion. No atelectasis or infiltrates. RIBS: No displaced rib fractures. No lytic or blastic bony lesions. OTHER: No other significant finding. IMPRESSION: NO PNEUMOTHORAX. NO DISPLACED RIB FRACTURES. COMMENT: SITE OF TRAUMA/COMPLAINT MARKED/STAMP COMPLETED: No TECHNICAL DOCUMENTATION: JOB ID: [id number] [employer]- All Rights Reserved Reading location - IP/workstation name: [email or web address]
[2019-06-25 17:30] LABS: APPEARANCE,URINE CLEAR; BILIRUBIN,URINE NEGATIVE (NEGATIVE); COLOR,URINE STRAW; GLUCOSE, URINE NEGATIVE (NEGATIVE); KETONES,URINE NEGATIVE (NEGATIVE); LEUKOCYTE ESTERASE,URINE NEGATIVE (NEGATIVE); NITRITE,URINE NEGATIVE (NEGATIVE); PROTEIN,URINE NEGATIVE (NEGATIVE); URINE SPECIFIC GRAVITY 1.005; UROBILINOGEN,URINE NEGATIVE mg/dL (<2.0)
[2019-06-25] MEDS ORDERED: LIDOCAINE 5% (700 MG) TRANSDERMAL ADH..PATCH TP ONE (17:55)
[2019-06-25 18:08] VITALS: BP 135/87
== END 2019-06-25 18:07 | disposition home or self-care (01) ==
LOC: ER 15:47
DX: R10.9 Unspecified abdominal pain (principal); R11.2 Nausea with vomiting, unspecified; F17.200 Nicotine dependence, unspecified, uncomplicated
CPT/HCPCS: 81001; 81025; 99283

== ENCOUNTER 2019-07-17 12:15 | Emergency (ER) | payer SELFPAY ==
[2019-07-17 12:41] VITALS: BP 123/82
--- NOTE | 2019-07-17 13:59 | ER Document Report ---
HPI - HPI Time Seen by Provider: 07/17/19 13:42 Pain Level: 2 Context: CHIEF COMPLAINT: Flu symptoms for 1 day HPI: 29-year-old female who is otherwise healthy presenting to the emergency department complaining of flu symptoms 1 day. Generalized body ache, cough, run ny nose, diarrhea. Denies fever. Denies shortness of breath. Denies abdominal pain. States all of her family members were diagnosed with influenza a earlier this week. ROS: See HPI - all other systems were reviewed and are otherwise negative Constitutional: no fever Eyes: no drainage, no blurred vision ENT: Positive runny nose, no sore throat Cardiovascular: no chest pain Resp: no SOB, positive cough GI: no vomiting, positive diarrhea, no abdominal pain : no dysuria Integumentary: no rash Allergy: no hives Musculoskeletal: no extremity pain or swelling Neurological: no numbness/tingling, no weakness MEDICATIONS: I agree with the patient medications as charted by the RN. ALLERGIES: I agree with the allergies as charted by the RN. PAST MEDICAL HISTORY/PAST SURGICAL HISTORY: Reviewed and agree as charted by RN. SOCIAL HISTORY: Reviewed and agree as charted by RN. FAMILY HISTORY: No significant familial comorbid conditions directly related to patient complaint EXAM: Reviewed vital signs as charted by RN. CONSTITUTIONAL: Alert and oriented and responds appropriately to questions. Well-appearing; well-nourished, mild distress secondary to cough HEAD: Normocephalic; atraumatic EYES: PERRL; Conjunctivae clear, sclerae non-icteric ENT: normal nose; positive clear rhinorrhea; moist mucous membranes; pharynx without lesions noted, no uvula edema or deviation, no tonsillar hypertrophy, phonation normal NECK: Supple without meningismus; non-tender; no cervical lymphadenopathy, no masses CARD: RRR; no murmurs, no clicks, no rubs, no gallops; symmetric distal pulses RESP: Normal chest excursion without splinting or tachypnea; breath sounds clear and equal bilaterally; no wheezes, no rhonchi, no rales, pulse oximetry 98% on room air not hypoxic ABD/GI: Normal bowel sounds; non-distended; soft, non-tender, no rebound, no guarding; no palpable organomegaly or masses. BACK: The back appears normal and is non-tender to palpation, there is no CVA tenderness EXT: Normal ROM in all joints; non-tender to palpation; no cyanosis, no effusions, no edema SKIN: Normal color for age and race; warm; dry; good turgor; no acute lesions noted NEURO: Moves all extremities equally; Motor and sensory function intact PSYCH: The patient's mood and manner are appropriate. Grooming and personal hygiene are appropriate. MDM: 29-year-old female with flulike symptoms for 1 day. Discussed at length with the patient. She declines influenza testing at this time. Would prefer to be treated for influenza with Tamiflu given her positive contacts will write patient for Tamiflu. Return instructions discussed - REPRODUCTIVE Reproductive: DENIES: : Past Medical History - Social History Smoking Status: Current Every Day Smoker Chew tobacco use (# tins/day): No Frequency of alcohol use: None Drug Abuse: Marijuana Family History: Reviewed & Not Pertinent, CVA, DM, Hypertension, Malignancy Patient has suicidal ideation: No Patient has homicidal ideation: No - Past Medical History Cardiac Medical History: Pulmonary Medical History: Neurological Medical History: Reports: Hx Migraine Endocrine Medical History: Renal/ Medical History: Reports: Hx Pelvic Inflammatory Disease. Denies: Hx Peritoneal Dialysis GI Medical History: Musculoskeletal Medical History: Psychiatric Medical History: Reports: Hx Depression Past Surgical History: Reports: Hx Section, Hx Dilation and Curettage, Hx Gynecologic Surgery - D&C 01/03/2014, Hx Oral Surgery - Immunizations Immunizations up to date: Yes Hx Diphtheria, Pertussis, Tetanus Vaccination: Yes Vertical Provider Document - INFECTION CONTROL TRAVEL OUTSIDE OF THE [place] IN LAST 30 DAYS: No Course - Vital Signs Vital signs: Temp Pulse Resp BP Pulse Ox 98.4 F 79 16 123/82 97 07/17/19 12:40 07/17/19 12:40 07/17/19 12:40 07/17/19 12:40 07/17/19 12:40 Discharge - Discharge Clinical Impression: Influenza-like illness Condition: Stable Disposition: HOME, SELF-CARE Additional Instructions: 1. hydrate well at home with juices and water 2. treat fevers and body aches with Motrin and Tylenol 3. out of work for the next 2 days 4. follow up recheck with your PCP in 1-2 days, call for appt. 5. return to the ED for worsening condition Prescriptions: Ibuprofen [Motrin 600 Mg Tablet] 600 mg PO TID #15 tablet Oseltamivir Phosphate [Tamiflu 75 mg Capsule] 75 mg PO BID #10 capsule Forms: Return to Work Referrals: DANA SARGENT MD [ACTIVE STAFF] - Follow up as needed
== END 2019-07-17 14:15 | disposition home or self-care (01) ==
LOC: ER 12:15
DX: J11.1 Influenza due to unidentified influenza virus with other respiratory manifestations (principal); R52 Pain, unspecified; J34.89 Other specified disorders of nose and nasal sinuses; R19.7 Diarrhea, unspecified; R05 Cough; F12.10 Cannabis abuse, uncomplicated; F17.200 Nicotine dependence, unspecified, uncomplicated
CPT/HCPCS: 99283

== ENCOUNTER 2019-09-18 18:25 | Emergency (ER) | payer SELFPAY ==
--- NOTE | 2019-09-18 21:33 | ER Document Report ---
Entered by AMERICA CLIFTON SCRIBE 09/18/19 7211 Acting as scribe for:PAMELA MELENDREZ IV, MD ED General - General Chief Complaint: Fever Stated Complaint: COUGH Time Seen by Provider: 09/18/19 20:24 Information source: Patient Notes: This 29-year-old female presents to the emergency department complaining of fever that began yesterday. Patient describes that her fever has been 99. Pat ient reports left ear pain and shortness of breath. Patient states that her shortness of breath is worse with movement and working. Patient states that she is an every day smoker. Patient requests a doctors note for today and tomorrow. DDx: bronchitis, bacterial bronchitis and pnuemonia. TRAVEL OUTSIDE OF THE [place] IN LAST 30 DAYS: No - Related Data Allergies/Adverse Reactions: latex [Latex] Allergy (Verified 07/17/19 13:39) Past Medical History - General Information source: Patient - Social History Smoking Status: Current Every Day Smoker Cigarette use (# per day): Yes Chew tobacco use (# tins/day): No Frequency of alcohol use: None Drug Abuse: None Family History: Reviewed & Not Pertinent, CVA, DM, Hypertension, Malignancy Patient has suicidal ideation: No Patient has homicidal ideation: No - Past Medical History Cardiac Medical History: Pulmonary Medical History: Neurological Medical History: Reports: Hx Migraine Endocrine Medical History: Renal/ Medical History: Reports: Hx Pelvic Inflammatory Disease GI Medical History: Musculoskeletal Medical History: Psychiatric Medical History: Reports: Hx Depression Past Surgical History: Reports: Hx Section, Hx Dilation and Curettage, Hx Gynecologic Surgery - D&C 01/03/2014, Hx Oral Surgery - Immunizations Immunizations up to date: Yes Hx Diphtheria, Pertussis, Tetanus Vaccination: Yes Review of Systems - Review of Systems Constitutional: See HPI, Fever EENT: See HPI, Ear pain - Left Cardiovascular: No symptoms reported Respiratory: See HPI, Short of breath Gastrointestinal: No symptoms reported Genitourinary: No symptoms reported Female Genitourinary: No symptoms reported Musculoskeletal: No symptoms reported Skin: No symptoms reported Hematologic/Lymphatic: No symptoms reported Neurological/Psychological: No symptoms reported -: Yes All other systems reviewed and negative Physical Exam - Vital signs Vitals: Temp Pulse Resp BP Pulse Ox 98.5 F 77 14 136/89 H 99 09/18/19 18:29 04/09/20 18:29 09/18/19 18:29 09/18/19 18:29 09/18/19 18:29 - Notes Notes: Physical Exam: General: Alert, appears well. HEENT: Normocephalic. Atraumatic. PERRL. Extraocular movements intact. Oropharynx clear. Clear effusion in the left ear. Neck: Supple. Non-tender. Respiratory: No respiratory distress. Clear and equal breath sounds bilaterally. Cardiovascular: Regular rate and rhythm. Abdominal: Normal Inspection. Non-tender. No distension. Normal Bowel Sounds. Back: No gross abnormalities. Extremities: Moves all four extremities. Upper extremities: Normal inspection. Normal ROM. Lower extremities: Normal inspection. No edema. Normal ROM. Neurological: Normal cognition. AAOx4. Normal speech. Psychological: Normal affect. Normal Mood. Skin: Warm. Dry. Normal color. Course - Re-evaluation Re-evalutation: 09/18/19 21:34 Results of ED MSE discussed with patient. All questions were answered prior to patient discharge. Emergency signs and symptoms, reasons to return to the emergency department discussed with patient. 09/18/19 21:43 Patient counseled about quitting smoking. - Vital Signs Vital signs: Temp Pulse Resp BP Pulse Ox 98.5 F 77 14 136/89 H 99 09/18/19 18:29 09/18/19 18:29 09/18/19 18:29 09/18/19 18:29 09/18/19 18:29 Discharge - Discharge Clinical Impression: Tobacco abuse, Tobacco abuse counseling Acute bronchitis Qualifiers: Bronchitis organism: unspecified organism Qualified Code(s): J20.9 - Acute bronchitis, unspecified Condition: Good Disposition: HOME, SELF-CARE Additional Instructions: Return to the Emergency Department without delay if any worse. HOME CARE INSTRUCTIONS & INFORMATION: Thank you for choosing us for your medical needs. We hope you're satisfied with the care you received. After you leave, you must properly care for your problem and, at the same time, observe its progress. Any condition can change. Some illnesses can change rapidly over hours or days. If your condition worsens, return to the Emergency Department or see your physician promptly. ABOUT YOUR X-RAYS AND EKG'S: If you had an EKG or X-rays taken, they have been read by the Emergency Physician. The X-rays and EKG's will also be read by a Radiologist or Trampoline Team Coach within 24 hours. If discrepancies are noted, you will be notified by telephone. Please be certain the ED has a correct telephone number & address where you can be reached. Also, realize that some fractures or abnormalities do not show up on initial X-rays. If your symptoms continue, see your physician. ABOUT YOUR LABORATORY TEST: If you had laboratory tests, the results have been reviewed by the Emergency Physician. Some test results (for example cultures) may not be available for several days. You will be contacted if any test result shows you need additional treatment. Please be certain the ED has a correct telephone number and address where you can be reached. ABOUT YOUR MEDICATIONS: You will receive instructions on how to take your medicine on the prescription label you receive. Additional information may be provided by the Pharmacy. If you have questions afterwards, call the ED for clarification or further instructions. Some prescribed medications may cause drowsiness. Do not perform tasks such as driving a car or operating machinery without consulting your Pharmacist. If you feel you need a refill of pain medication, your condition will need re-evaluation. Please do not call for a refill of any medication. ABOUT YOUR SIGNATURE: Signature of this document acknowledges to followin. Understanding that you received emergency treatment and that you may be released before al medical problems are known or treated. Please be certain the ED has a correct phone number & address where you can be reached. 2. Acknowledgement that you will arrange for follow-up care as recommended. 3. Authorization for the Emergency Physician to provide information to your follow-up Physician in order to maximize your care. AT ANY TIME, IF YOUR SYMPTOMS CHANGE SIGNIFICANTLY OR WORSEN OR YOU DEVELOP NEW SYMPTOMS, RETURN TO THE EMERGENCY DEPARTMENT IMMEDIATELY FOR RE-EVALUATION. OUR GOAL IS TO PROVIDE EXCELLENT MEDICAL CARE! WE HOPE THAT WE HAVE MET YOUR EXPECTATIONS DURING YOUR EMERGENCY DEPARTMENT VISIT AND THAT YOU FEEL YOU HAVE RECEIVED EXCELLENT CARE! Bronchitis You have acute bronchitis. This disease is an infection or inflammation of the air passageways in your lungs. Symptoms usually include cough, low grade fever, shortness of breath, and wheezing. The cough usually persists for a couple of weeks. Most cases of bronchitis get better without antibiotics. We prescribe antibiotics when we believe bacteria are damaging your airways, or if there's high risk the bronchitis will worsen into pneumonia. Increase your fluid intake. A cool mist humidifier may make your lungs more comfortable. An expectorant (cough medicine that loosens phlegm) can help. If you smoke, STOP!!! Recovery from bronchitis can be somewhat slow, but you should see improvement within a day or two. Repeated episodes of bronchitis may result in lung damage -- for example, chronic bronchitis, recurrent pneumonias, or emphysema. Call the doctor if you develop increasing fever, shortness of breath, chest pain, bloody sputum, or otherwise worsen. If you have not improved at all after several days, contact the physician. Stop Smoking You should stop smoking. The tar and chemicals in cigarette smoke are harmful. Smoking has been shown to cause: Emphysema and chronic bronchitis Lung cancer Cancer of the mouth, larynx, stomach, and pancreas Heart disease and stroke Stillbirths and miscarriage Premature aging In addition, smoking increases the chances of respiratory infections and ear infections in children of smokers, and increases the risk of cancer in persons exposed to second-hand smoke. Classes are available to help you stop smoking. If you are serious about wanting to quit, we can help arrange this therapy for you, or you can contact the local lung or cancer association. Prescriptions: Prednisone 50 mg PO DAILY 4 Days #20 tablet Forms: Return to Work Referrals: XAVIER JAVED MD [HONORARY] - Follow up as needed I personally performed the services described in the documentation, reviewed and edited the documentation which was dictated to the scribe in my presence, and it accurately records my words and actions.
[2019-09-18] MEDS ORDERED: PREDNISONE 20 MG TABLET PO ONE (21:44)
[2019-09-18] MEDS ORDERED: ALBUTEROL SULFATE HFA (90 MCG/PUFF) 8 GM MDI IH ONE (21:44)
[2019-09-18 22:39] VITALS: BP 141/84
== END 2019-09-18 22:39 | disposition home or self-care (01) ==
LOC: ER 18:25
DX: J20.9 Acute bronchitis, unspecified (principal); R50.9 Fever, unspecified; R05 Cough; H92.02 Otalgia, left ear; R06.02 Shortness of breath; F17.210 Nicotine dependence, cigarettes, uncomplicated
CPT/HCPCS: 99283; J7512; J3490

== ENCOUNTER 2019-10-07 18:06 | Emergency (ER) | payer SELFPAY ==
--- NOTE | 2019-10-07 18:30 | ER Document Report ---
ED Medical Screen (RME) - General Chief Complaint: Stiff Neck Stated Complaint: URINARY ISSUE Time Seen by Provider: 10/07/19 18:27 Mode of Arrival: Ambulatory Information source: Patient Notes: 29-year-old female presents to ED for head pain neck pain with knots about the size of a marble on both posterior scalp. They are very hard. She also has frequency urgency and burning with urination. She states she also has a cough that she has had she was recently diagnosed with bronchitis and this is the same cough is not going away. She is alert oriented respirations regular nonlabored speaking in full sentences. Last menstrual period was September 15. She does smoke a half a pack a day and smokes marijuana but does not drink alcohol. She has had a D&C a is a clot and wisdom teeth removal. She is alert oriented respirations regular nonlabored speaking in full sentences. I have greeted and performed a rapid initial assessment of this patient. A comprehensive ED assessment and evaluation of the patient, analysis of test results and completion of medical decision making process will be conducted by an additional ED providers. TRAVEL OUTSIDE OF THE [place] IN LAST 30 DAYS: No - Related Data Allergies/Adverse Reactions: latex [Latex] Allergy (Verified 10/07/19 18:23) Home Medications: depression med, ambien Past Medical History - Social History Chew tobacco use (# tins/day): No Frequency of alcohol use: None Drug Abuse: Marijuana Family history: Reviewed & Not Pertinent - Past Medical History Cardiac Medical History: Pulmonary Medical History: Neurological Medical History: Reports: Hx Migraine Endocrine Medical History: Renal/ Medical History: Reports: Hx Pelvic Inflammatory Disease. Denies: Hx Peritoneal Dialysis GI Medical History: Musculoskeltal Medical History: Psychiatric Medical History: Reports: Hx Depression Past Surgical History: Reports: Hx Section, Hx Dilation and Curettage, Hx Gynecologic Surgery - D&C 01/03/2014, Hx Oral Surgery - Immunizations Immunizations up to date: Yes Hx Diphtheria, Pertussis, Tetanus Vaccination: Yes Physical Exam - Vital signs Vitals: Temp Pulse Resp BP Pulse Ox 99.4 F 91 17 128/76 H 100 10/07/19 18:11 10/07/19 18:11 10/07/19 18:11 10/07/19 18:11 10/07/19 18:11 Course - Vital Signs Vital signs: Temp Pulse Resp BP Pulse Ox 99.4 F 91 17 128/76 H 100 10/07/19 18:23 10/07/19 18:11 10/07/19 18:11 10/07/19 18:11 10/07/19 18:11
[2019-10-07 18:48] LABS: APPEARANCE,URINE CLOUDY; BILIRUBIN,URINE NEGATIVE (NEGATIVE); COLOR,URINE RED; GLUCOSE, URINE NEGATIVE (NEGATIVE); KETONES,URINE TRACE mg/dL (NEGATIVE); PROTEIN,URINE 100 mg/dL (NEGATIVE); URINE SPECIFIC GRAVITY 1.025
[2019-10-07 19:25] LABS: ABSOLUTE LYMPHOCYTES (AUTO) 1.3 10^3/uL (0.5-4.7); ABSOLUTE MONOCYTES (AUTO) 0.8 10^3/uL (0.1-1.4); ABSOLUTE NEUT (AUTO) 6.6 10^3/uL (1.7-8.2); BASOPHILS % (AUTO) 0.6 % (0-2); EOSINOPHILS % (AUTO) 0.5 % (0-6); HEMATOCRIT 43.9 % (36.0-47.0); HEMOGLOBIN 15.4 g/dL (12.0-15.5); LYMPHOCYTES % (AUTO) 14.7 % (13-45); MEAN CORPUSCULAR HEMOGLOBIN 32.4 pg (27.0-33.4); MEAN CORPUSCULAR VOLUME 93 fl (80-97); MONOCYTES % (AUTO) 9.2 % (3-13); PLATELET COUNT 147 10^3/uL (150-450); RED BLOOD COUNT 4.74 10^6/uL (3.72-5.28); RED CELL DISTRIBUTION WIDTH 13.6 % (11.5-14.0); TOTAL CELLS COUNTED % (AUTO) 100 %; WHITE BLOOD COUNT 8.9 10^3/uL (4.0-10.5)
[2019-10-07] MEDS ORDERED: PHENAZOPYRIDINE HCL 200 MG TABLET PO ONE (19:32)
[2019-10-07] MEDS ORDERED: CEPHALEXIN 500 MG CAPSULE PO ONE (19:32)
--- NOTE | 2019-10-07 19:38 | ER Document Report ---
ED General - General Chief Complaint: Stiff Neck Stated Complaint: URINARY ISSUE Time Seen by Provider: 10/07/19 18:27 Mode of Arrival: Ambulatory TRAVEL OUTSIDE OF THE [place] IN LAST 30 DAYS: No - HPI Notes: Patient is a 29-year-old female who presents emergency department for ingris luation. First she noticed "knots" on the back of her head and her neck that are tender to touch. She denies any fevers or chills. No sore throat, no ear pain. She states she was diagnosed with bronchitis a few weeks ago, and her cough is minimal but does remain, but again it has improved since onset. She also complains of some dysuria, urethral pain, and suprapubic pain after urinating. She states she noticed some blood in her urine earlier today. She currently puts her pain at a 1 out of 5, states is a 3 out of 5 with urination. - Related Data Allergies/Adverse Reactions: latex [Latex] Allergy (Verified 10/07/19 18:23) Home Medications: depression med, ambien Past Medical History - General Information source: Patient - Social History Smoking Status: Current Every Day Smoker Chew tobacco use (# tins/day): No Frequency of alcohol use: None Drug Abuse: Marijuana Family History: Reviewed & Not Pertinent, CVA, DM, Hypertension, Malignancy Patient has suicidal ideation: No Patient has homicidal ideation: No - Past Medical History Cardiac Medical History: Pulmonary Medical History: Neurological Medical History: Reports: Hx Migraine Endocrine Medical History: Renal/ Medical History: Reports: Hx Pelvic Inflammatory Disease. Denies: Hx Peritoneal Dialysis GI Medical History: Musculoskeletal Medical History: Psychiatric Medical History: Reports: Hx Depression Past Surgical History: Reports: Hx Section, Hx Dilation and Curettage, Hx Gynecologic Surgery - D&C 01/03/2014, Hx Oral Surgery - Immunizations Immunizations up to date: Yes Hx Diphtheria, Pertussis, Tetanus Vaccination: Yes Review of Systems - Review of Systems Genitourinary: See HPI Hematologic/Lymphatic: See HPI -: Yes All other systems reviewed and negative Physical Exam - Vital signs Vitals: Temp Pulse Resp BP Pulse Ox 99.4 F 91 17 128/76 H 100 10/07/19 18:11 10/07/19 18:11 10/07/19 18:11 10/07/19 18:11 10/07/19 18:11 - Notes Notes: Vital signs reviewed, please refer to chart. Head is normocephalic, atraumatic. Pupils equal round, reactive to light. Oral mucosa is moist. Pharynx is without erythema or exudate. Neck is supple without meningismus. Patient does have multiple lymph nodes in the posterior occipital chain, measuring less than 1 cm, that are tender to palpation. No overlying skin changes. Heart is regular rate and rhythm. Lungs are clear to auscultation bilaterally. Abdomen is soft, nontender, normoactive bowel sounds throughout. Extremities without cyanosis, clubbing. Posterior calves are nontender. Peripheral pulses are equal. Skin is warm and dry. Patient is awake, alert, neurological exam is nonfocal. Course - Re-evaluation Re-evalutation: 10/07/19 19:34 Patient presents to the emergency department for evaluation. She has ly mphadenopathy in the posterior occipital chain. She is not showing any signs of infectious mononucleosis. Her lymph nodes are tender, but mobile. I explained to the patient that these are most likely reactive. I am placing her on antibiotics for what I did find to be a urinary tract infection, and they should certainly cover any small skin infection that might of caused this local adenopathy. I talked to her at length, however, if this persists she will need further testing to rule out a more significant condition. She voiced understanding. Otherwise she is given a dose of Keflex for her urinary tract infection, urine was sent for culture. She is told she does not see improvement in the next 24 hours, she develops fever, vomiting, or any other new concerning symptoms, she needs to return to the ER. Otherwise she should follow-up with primary care next week. She voiced understanding and was discharged. - Vital Signs Vital signs: Temp Pulse Resp BP Pulse Ox 99.4 F 91 17 128/76 H 100 10/07/19 18:23 10/07/19 18:11 10/07/19 18:11 10/07/19 18:11 10/07/19 18:11 - Laboratory Result Diagrams: 10/07/19 19:13 Laboratory results interpreted by me: 10/07/19 10/07/19 18:15 19:13 Plt Count 147 L Urine Protein 100 H Urine Ketones TRACE H Urine Blood LARGE H Urine Urobilinogen 4.0 H Leukocyte Esterase Rfl MODERATE H Discharge - Discharge Clinical Impression: Lymphadenopathy Urinary tract infection Qualifiers: Urinary tract infection type: acute cystitis Hematuria presence: with hematuria Qualified Code(s): N30.01 - Acute cystitis with hematuria Condition: Stable Disposition: HOME, SELF-CARE Instructions: Cephalexin ([facility]), Urinary Tract Infection ([facility]), Cervical Lymphadenitis ([facility]) Additional Instructions: Take all of the antibiotic as prescribed until it is gone. Rest, stay well- hydrated. Take Pyridium as needed for bladder spasms and urinary frequency symptoms. Please note that the lymph nodes in your neck are likely reactive, but if they do not improve over the next 1 to 2 weeks, it is imperative that you have further evaluation of this condition. Follow-up with your primary care provider next week. If develop fevers, increased pain, vomiting, or any other new or concerning symptoms, return immediately to the emergency department for reevaluation. Prescriptions: Cephalexin Monohydrate [Keflex 500 mg Capsule] 500 mg PO QID #20 capsule Phenazopyridine HCl [Pyridium 200 mg Tablet] 200 mg PO TID #15 tablet
[2019-10-07 20:08] VITALS: BP 116/76
== END 2019-10-07 20:06 | disposition home or self-care (01) ==
LOC: ER 18:06
DX: R59.0 Localized enlarged lymph nodes (principal); N30.01 Acute cystitis with hematuria; M43.6 Torticollis; R39.198 Other difficulties with micturition; R05 Cough; R30.0 Dysuria; N36.8 Other specified disorders of urethra; R10.30 Lower abdominal pain, unspecified; Z88.8 Allergy status to other drugs, medicaments and biological substances; F17.200 Nicotine dependence, unspecified, uncomplicated
CPT/HCPCS: 99283; 36415; 87086; 85025; 81025; 81001; J3490; 87088; 87186

== ENCOUNTER 2019-12-01 18:55 | Emergency (ER) | payer SELFPAY ==
[2019-12-01 19:34] LABS: AMORPHOUS SEDIMENT,URINE TRACE /HPF; APPEARANCE,URINE CLOUDY; BILIRUBIN,URINE NEGATIVE (NEGATIVE); COLOR,URINE AMBER; GLUCOSE, URINE NEGATIVE (NEGATIVE); KETONES,URINE NEGATIVE (NEGATIVE); LEUKOCYTE ESTERASE,URINE LARGE (NEGATIVE); NITRITE,URINE NEGATIVE (NEGATIVE); PROTEIN,URINE 100 mg/dL (NEGATIVE); URINE SPECIFIC GRAVITY 1.015
--- NOTE | 2019-12-01 21:24 | ER Document Report ---
ED General - General Chief Complaint: Cough Stated Complaint: COUGH,CONGESTION,DIARRHEA Time Seen by Provider: 12/01/19 20:09 Notes: 29-year-old female with a history of chronic UTIs and depression presenting today with cough, congestion, shortness of breath and dysuria. Patient reports that she was recently treated for UTI 2 weeks ago. States that her symptoms completely resolved. Notes that she redeveloped dysuria 2 days ago. She does not note any gross hematuria in her blood. She denies any flank pain. Reports that she has some mild tenderness to the suprapubic region. Does not know what antibiotic she was on but she was seen in the emergency department. States that she was on a medication that made her urine orange. States she has had a productive cough for 2 days. She denies any chills, fever, nausea or vomiting, chest pain or abdominal pain. States that she does have watery diarrhea for 5 days. States that this typically happens when she has increased anxiety. Patient does report she has an increase in anxiety lately. Her depression medication was recently changed. She does not know what medication she is currently taking. States that she does use recreational drugs. Last use was 3 days ago states that she used meth. Denies any allergies to medications. TRAVEL OUTSIDE OF THE [place] IN LAST 30 DAYS: No - Related Data Allergies/Adverse Reactions: latex [Latex] Allergy (Verified 10/07/19 18:23) Past Medical History - Social History Smoking Status: Current Every Day Smoker Drug Abuse: Methamphetamine Family History: Reviewed & Not Pertinent, CVA, DM, Hypertension, Malignancy Patient has homicidal ideation: No - Past Medical History Cardiac Medical History: Reports: None Pulmonary Medical History: Reports: None Neurological Medical History: Reports: Hx Migraine Endocrine Medical History: Reports: None Renal/ Medical History: Reports: Hx Pelvic Inflammatory Disease. Denies: Hx Peritoneal Dialysis GI Medical History: Musculoskeletal Medical History: Psychiatric Medical History: Reports: Hx Depression Past Surgical History: Reports: Hx Section, Hx Dilation and Curettage, Hx Gynecologic Surgery - D&C 01/03/2014, Hx Oral Surgery - Immunizations Immunizations up to date: Yes Hx Diphtheria, Pertussis, Tetanus Vaccination: Yes Review of Systems - Review of Systems Constitutional: See HPI EENT: No symptoms reported Cardiovascular: No symptoms reported Respiratory: See HPI Gastrointestinal: See HPI Genitourinary: See HPI Female Genitourinary: No symptoms reported Musculoskeletal: No symptoms reported Skin: No symptoms reported Hematologic/Lymphatic: No symptoms reported Physical Exam - Vital signs Vitals: Temp Pulse Resp BP Pulse Ox 98.4 F 90 18 119/92 H 98 12/01/19 19:09 12/01/19 19:09 12/01/19 19:09 12/01/19 19:09 12/01/19 19:09 Interpretation: Normal - Notes Notes: Adult General: GENERAL: Alert, interacts well. No acute distress HEAD: Normocephalic, atraumatic EYES: Pupils equal, round and reactive to light. Extraocular movements intact. ENT: Oral mucosa moist, tongue midline. Oropharynx unremarkable. Airway patent. Nares patent, sinuses nontender, ear canals unremarkable, TMs intact. NECK: Full range of motion. Supple. Trachea midline. No lymphadenopathy. LUNGS: Clear to auscultation bilaterally, no wheezes, rales, or rhonchi. No respiratory distress. Nontender chest wall. HEART: Regular rate and rhythm. No murmurs, rubs or gallops. ABDOMEN: Soft, mild tenderness in suprapubic region. Nondistended. Bowel sounds present in all 4 quadrants. GENITOURINARY: Deferred EXTREMITIES: Moves all 4 extremities spontaneously. No edema, normal radial and dorsal pedis pulses bilaterally. No cyanosis. BACK: No CVA tenderness. Moves all extremities with full range of motion. NEUROLOGICAL: Alert and oriented x3. Normal speech. Strength 5/ 5 in all extremities. PSYCH: Normal affect, normal mood. SKIN: Warm, dry, normal turgor. No rashes or lesions noted. Course - Re-evaluation Re-evalutation: 12/02/19 00:07 Patient was reevaluated. States she still reports some urgency. She has received 1 g IM IM of Rocephin at this time. She has no leukocytosis, vital signs are stable, she is afebrile. Chest x-ray shows mild blunting of the costophrenic angles but no consolidations. Patient's urinalysis does show signs of a urinary tract infection. Her last menstrual period was middle of last month. She has a negative urine test. We will go ahead and prescribe her Keflex and Pyridium. Suspect her cough is due to a viral etiology. Recommend follow-up if you have worsening symptoms or development of new symptoms. Please follow-up with a primary care provider soon as possible. Patient verbalizes understanding of instructions and plan. All questions answered. - Vital Signs Vital signs: Temp Pulse Resp BP Pulse Ox 98.4 F 90 18 119/92 H 98 12/01/19 19:12 12/01/19 19:09 12/01/19 19:09 12/01/19 19:09 12/01/19 19:09 - Laboratory Result Diagrams: 12/01/19 22:25 12/01/19 22:25 Laboratory results interpreted by me: 12/01/19 12/01/19 12/01/19 19:15 22:25 22:25 Plt Count 144 L Sodium 136.2 L Potassium 3.3 L Urine Protein 100 H Urine Blood MODERATE H Urine Urobilinogen 4.0 H Ur Leukocyte Esterase LARGE H Discharge - Discharge Clinical Impression: Cough, Hypokalemia UTI (urinary tract infection) Qualifiers: Urinary tract infection type: site unspecified Hematuria presence: with hematuria Qualified Code(s): N39.0 - Urinary tract infection, site not specified Condition: Stable Disposition: HOME, SELF-CARE Instructions: Urinary Tract Infection ([facility]) Additional Instructions: I suspect that your cough is from a viral etiology. You do have a urinary tract infection which we are prescribing antibiotics for. Please take antibiotics to completion. Your potassium is slightly decreased at this time. But does not need replacement for additional treatment at this time. If you have worsening symptoms or development of new symptoms please return to the emergency department. Please follow-up with your primary care provider. Prescriptions: Cephalexin Monohydrate [Keflex 500 mg Capsule] 500 mg PO QID 20 Days #20 capsule Phenazopyridine HCl [Pyridium 200 mg Tablet] 200 mg PO TID #15 tablet
--- NOTE | 2019-12-01 22:39 | RADIOLOGY REPORT (SQ) ---
EXAM DESCRIPTION: XR CHEST 1 VIEW COMPLETED DATE/TME: 12/01/2019 21:26 CLINICAL HISTORY: 29 years, Female, productive cough, shortness of breath COMPARISON: 06/25/2019 chest NUMBER OF VIEWS: 1 TECHNIQUE: Portable chest LIMITATIONS: None. FINDINGS: The heart size is normal. Equivocal blunting of the costophrenic angles could reflect tiny effusions and/or pleural thickening. Lungs are otherwise clear. No pneumothorax IMPRESSION: Equivocal blunting of the costophrenic angles, as above. Remainder unremarkable copyright 2010 [employer]- All Rights Reserved
[2019-12-01] MEDS: CEFTRIAXONE INJ 1000 MG VIAL IV ONE ×2 (22:49→23:36)
[2019-12-01 22:54] LABS: URINE AMPHETAMINES SCREEN NEGATIVE; URINE BARBITURATES SCREEN NEGATIVE; URINE BENZODIAZEPINES SCREEN NEGATIVE; URINE COCAINE SCREEN NEGATIVE; URINE METHADONE SCREEN NEGATIVE; URINE PHENCYCLIDINE SCREEN NEGATIVE
[2019-12-01 22:58] LABS: URINE MARIJUANA (THC) SCREEN UNCONFIRMED POSITIVE
[2019-12-01 23:09] LABS: ABSOLUTE LYMPHOCYTES (AUTO) 1.3 10^3/uL (0.5-4.7); ABSOLUTE MONOCYTES (AUTO) 0.8 10^3/uL (0.1-1.4); ABSOLUTE NEUT (AUTO) 7.4 10^3/uL (1.7-8.2); BASOPHILS % (AUTO) 0.4 % (0-2); EOSINOPHILS % (AUTO) 0.2 % (0-6); HEMATOCRIT 40.6 % (36.0-47.0); HEMOGLOBIN 13.9 g/dL (12.0-15.5); MEAN CORPUSCULAR HEMOGLOBIN 31.6 pg (27.0-33.4); MEAN CORPUSCULAR HGB CONC 34.4 g/dL (32.0-36.0); MEAN CORPUSCULAR VOLUME 92 fl (80-97); MONOCYTES % (AUTO) 8.8 % (3-13); PLATELET COUNT 144 10^3/uL (150-450); RED BLOOD COUNT 4.41 10^6/uL (3.72-5.28); RED CELL DISTRIBUTION WIDTH 13.7 % (11.5-14.0); SEGMENTED NEUTROPHILS % (AUTO) 76.6 % (42-78); TOTAL CELLS COUNTED % (AUTO) 100 %; WHITE BLOOD COUNT 9.6 10^3/uL (4.0-10.5)
[2019-12-01] MEDS ORDERED: CEFTRIAXONE INJ 250 MG VIAL IM ONE (23:10)
[2019-12-01 23:24] LABS: ALKALINE PHOSPHATASE 66 U/L (38-126); ANION GAP 5 (5-19); ASPARTATE AMINO TRANSFERASE 19 U/L (14-36); BILIRUBIN,TOTAL 0.4 mg/dL (0.2-1.3); BLOOD UREA NITROGEN 10 mg/dL (7-20); CALCIUM 9.2 mg/dL (8.4-10.2); CARBON DIOXIDE 28 mmol/L (22-30); CHLORIDE 103 mmol/L (98-107); GLUCOSE 88 mg/dL (75-110); POTASSIUM 3.3 mmol/L (3.6-5.0); TOTAL PROTEIN 7.1 g/dL (6.3-8.2)
[2019-12-02 02:09] VITALS: BP 106/51
== END 2019-12-02 02:10 | disposition home or self-care (01) ==
LOC: ER 18:55
DX: N39.0 Urinary tract infection, site not specified (principal); E87.5 Hyperkalemia; R05 Cough; R19.7 Diarrhea, unspecified; F17.200 Nicotine dependence, unspecified, uncomplicated; Z91.040 Latex allergy status; Z87.440 Personal history of urinary (tract) infections
CPT/HCPCS: 99285; 96372; 36415; 87086; 85025; 81025; 80053; 81001; 80307; 71045; J0696; 87088; 87186

== ENCOUNTER 2020-06-26 15:08 | Emergency (ER) | payer SELFPAY ==
[2020-06-26 15:13] VITALS: BP 132/74
--- NOTE | 2020-06-26 15:44 | ER Document Report ---
ED Respiratory Problem - General Chief Complaint: Cough Stated Complaint: DIARRHEA,COUGH,CONGESTION Time Seen by Provider: 06/26/20 15:34 Primary Care Provider: [facility] [Provider Group] - Follow up as needed Mode of Arrival: Ambulatory Information source: Patient TRAVEL OUTSIDE OF THE [place] IN LAST 30 DAYS: No - HPI Patient complains to provider of: Cough Notes: Patient here with complaints of cough and nasal congestion that started yesterday. She also states that she had a few episodes of diarrhea since yesterday. She denies any chest pain or shortness of breath. Symptoms are mild, nothing makes them better or worse. She called off work and needs a work note. She denies any nausea or vomiting. No abdominal pain. No dysuria or hematuria. No rash. No fever. No severe headache. No blurred or loss of vision. No numbness, tingling, weakness. She denies being around anybody with COVID-19. She denies any other specific complaints at this time. - Related Data Allergies/Adverse Reactions: latex [Latex] Allergy (Verified 06/26/20 15:28) Home Medications: patient unsure what medications are called Past Medical History - Social History Smoking Status: Never Smoker Chew tobacco use (# tins/day): No Frequency of alcohol use: None Drug Abuse: Marijuana Family History: Reviewed & Not Pertinent, CVA, DM, Hypertension, Malignancy - Past Medical History Cardiac Medical History: Pulmonary Medical History: Neurological Medical History: Reports: Hx Migraine Endocrine Medical History: Renal/ Medical History: Reports: Hx Pelvic Inflammatory Disease. Denies: Hx Peritoneal Dialysis GI Medical History: Musculoskeletal Medical History: Psychiatric Medical History: Reports: Hx Depression Past Surgical History: Reports: Hx Section, Hx Dilation and Curettage, Hx Gynecologic Surgery - D&C 01/03/2014, Hx Oral Surgery - Immunizations Immunizations up to date: Yes Hx Diphtheria, Pertussis, Tetanus Vaccination: Yes Review of Systems - Review of Systems -: Yes All other systems reviewed and negative Physical Exam - Vital signs Vitals: Temp Pulse Resp BP Pulse Ox 98.3 F 71 18 132/74 H 100 06/26/20 15:12 06/26/20 15:12 06/26/20 15:12 06/26/20 15:12 06/26/20 15:12 - Notes Notes: GENERAL: alert, cooperative, nontoxic, no distress. HEAD: normocephalic, atraumatic EYES: conjunctiva pink without discharge, no external redness or swelling. EARS: no external swelling, no external redness, no mastoid redness, swelling, tenderness. Ear canals are clear without swelling or drainage. TMs pearly matta, no redness, no bulging, normal landmarks, no perforation. NOSE: atraumatic, no external swelling. clear rhinorrhea noted. MOUTH/THROAT: mucous membranes moist and pink, posterior pharynx without erythema, swelling, exudate. No trismus or drooling. Voice is normal, no stridor. NECK: soft, supple, full range of motion, no meningismus. CHEST: no distress, lungs clear and equal throughout. No wheezing, rales, rhonchi. CARDIAC: regular rate and rhythm, no murmur EXTREMITIES: full range of motion of all extremities. No redness, no swelling. NEURO: alert and oriented A&O3, no focal deficits, full range of motion of all extremities. PYSCH: appropriate mood, affect. Patient is cooperative. SKIN: pink, warm, dry, no rash. Course - Re-evaluation Re-evalutation: 06/26/20 15:49 Patient is nontoxic-appearing with stable vitals. Here with complaints of nasal congestion cough and mild diarrhea that started yesterday. No fever. No distress. Overall the patient looks extremely well. Vital signs are stable, she is not tachypneic, febrile or hypoxic. Lungs are clear and equal throughout. The remainder of her exam is unremarkable for any significant abnormalities. Patient most likely with viral URI. Due to the fact that we are in the midst of a COVID-19 pandemic, Covid swab was obtained. She was instructed to quarantine until she gets her results. If negative she may return to work as long as she is feeling okay. If positive she must quarantine for 10 days according to the CDC. Instructed to follow-up sooner for/follow-up for any worsening symptoms, chest pain or shortness of breath, severe abdominal pain, persistent vomiting, or for any further concerns. The patient's emergency department workup and current diagnosis were explained to the patient and or family. Follow-up instructions were provided. Medications if prescribed were discussed. Instructions for when to return to the emergency department including specific worrisome symptoms were discussed with the patient and/or family. - Vital Signs Vital signs: Temp Pulse Resp BP Pulse Ox 98.3 F 71 18 132/74 H 100 06/26/20 15:12 06/26/20 15:12 06/26/20 15:12 06/26/20 15:12 06/26/20 15:12 - Laboratory Results Critical Laboratory Results Reviewed: No Critical Results - Radiology Results Critical Radiology Results Reviewed: No Critical Results Discharge - Discharge Clinical Impression: Person under investigation for COVID-19 URI (upper respiratory infection) Qualifiers: URI type: unspecified viral URI Qualified Code(s): J06.9 - Acute upper respiratory infection, unspecified Condition: Stable Disposition: HOME, SELF-CARE Instructions: COVID-19 Guidance for Persons Under Investigation, Upper Respiratory Illness ([facility]) Additional Instructions: Take medications as prescribed. Take Tylenol or Motrin as needed for pain or fever. Drink plenty of fluids. You can take [id number] zinc and vitamin C if you would like. You were swabbed for Covid today. If your test is negative you may return to work. If it is positive you must quarantine for 10 days. Follow-up for any worsening symptoms, severe chest pain or shortness of breath, persistent vomiting, or for any further concerns. Prescriptions: Benzonatate [Tessalon Perles 100 mg Capsule] 100 mg PO Q8HP PRN #20 capsule PRN Reason: Desloratadine/Pseudoephedrine [Clarinex-D 12 Hour Tablet] 1 each PO BID PRN #14 tbmp.12hr PRN Reason: Fluticasone Propionate [Flonase Nasal [place] 50 Mcg/[place] 16 gm] 1 spray NASL Q12 #1 inhaler Forms: Return to Work Referrals: [facility] [Provider Group] - Follow up as needed
== END 2020-06-26 15:54 | disposition home or self-care (01) ==
LOC: ER 15:08
DX: J06.9 Acute upper respiratory infection, unspecified (principal); R05 Cough; R19.7 Diarrhea, unspecified; R09.81 Nasal congestion; Z20.822 Contact with and (suspected) exposure to COVID-19
CPT/HCPCS: 99283; 36415; 87635; C9803